=== PATIENT | female | born 1960 | race Caucasian/White ===

== ENCOUNTER 2020-02-09 14:07 | Emergency (ER) | payer MEDICAID ==
[2020-02-09 14:13] VITALS: BP 167/80
[2020-02-09] MEDS ORDERED: LIDOCAINE 1%-EPI 1:100000 20 ML MDV SUBQ STA (14:33)
[2020-02-09] MEDS ORDERED: TETANUS/DIPHTHERIA/PERTUSSIS 0.5 ML SYRINGE IM ONE (14:33)
--- NOTE | 2020-02-09 14:55 | ED Physician Documentation ---
History of Present Illness - Stated complaint Stated Complaint: RT ELBOW PX - Chief complaint Chief Complaint: Ext Problem - History obtained from History obtained from: Patient - History of Present Illness Timing: How many weeks ago (1) Pain level max: 5 Pain level now: 4 - Additonal information Additional information: Right elbow swelling after a fall 1 week ago. Worse with movement and better with rest. Review of Systems Constitutional: denies: Fever, Chills GI: denies: Vomiting, Diarrhea Skin: denies: Rash Musculoskeletal: denies: Neck pain, Back pain Neurologic: denies: Headache PD PAST MEDICAL HISTORY - Past Medical History Past Medical History: No - Past Surgical History Past Surgical History: No - Present Medications Home Medications: Ambulatory Orders Medication Instructions Recorded Confirmed Meloxicam [Mobic] 15 mg PO DAILY PRN #20 tablet 02/09/20 - Allergies Allergies/Adverse Reactions: Allergies Allergy/AdvReac Type Severity Reaction Status Date / Time No Known Drug Allergies Allergy Verified 02/09/20 14:10 - Living Situation Living Situation: reports: With family Living Arrangement: reports: At home - Social History Does the pt smoke?: No Smoking Status: Never smoker - Family History Family history: reports: Non contributory PD ED PE NORMAL - Vitals Vital signs reviewed: Yes - General General: Alert and oriented X 3, No acute distress - HEENT HEENT: Moist mucous membranes - Neck Neck: Supple, no meningeal sign - Respiratory Respiratory: No respiratory distress - Back Back: No spinal TTP - Derm Derm: Warm and dry - Extremities Extremities: Other (Olecranon bursa is inflamed, erythematous, tender to the touch. Approximately 2 x 2 cm in size.) - Neuro Neuro: Alert and oriented X 3 - Psych Psych: Normal mood, Normal affect Results - Vitals Vitals: Vital Signs - 24 hr 02/09/20 14:10 Temperature 37.1 C Heart Rate 84 Respiratory 14 Rate Blood Pressure 167/80 H O2 Saturation 98 Oxygen O2 Source Room air - Labs Labs: Microbiology 02/09/20 14:40 Body Fluid Culture - Final Other - Right Arm Laboratory Tests 02/09/20 02/09/20 14:40 14:40 Fluid Source SYNOVIAL Fluid Color YELLOW Fluid Clarity HAZY Fluid WBC 5160 Fluid RBC 5000 Fluid Crystals NONE SEEN Procedures - Abscess I&D (location) Right olecranon bursa Preparation: Confirmed with ultrasound, Lidocaine 1%, With epi Incision: Needle aspiration Other: Pt tolerated well, Dressing applied PD MEDICAL DECISION MAKING - ED course Complexity details: considered differential, d/w patient ED course: Patient with what appears to be a bursitis of the right olecranon bursa. Joint fluid is yellow and clear. Feels better after aspiration. Will place on anti-inflammatories as well. No signs of infection. Patient counseled regarding signs and symptoms for which I believe and urgent re-evaluation would be necessary. Patient with good understanding of and agreement to plan and is comfortable going home at this time This document was made in part using voice recognition software. While efforts are made to proofread this document, sound alike and grammatical errors may occur. Departure - Departure Disposition: 01 Home, Self Care Clinical Impression: Bursitis Qualifiers: Bursitis location: elbow Elbow bursitis location: olecranon bursitis Laterality: right Qualified Code(s): M70.21 - Olecranon bursitis, right elbow Condition: Good Instructions: ED Bursitis Follow-Up: Your,doctor in 1 week [Other] Prescriptions: Meloxicam [Mobic] 15 mg PO DAILY PRN #20 tablet PRN Reason: pain Comments: This should improve with anti-inflammatories. Follow-up with your doctor for further care. Discharge Date/Time: 02/09/20 15:03
[2020-02-09 15:30] LABS: BF CLARITY HAZY; BF COLOR YELLOW; BF SOURCE SYNOVIAL
[2020-02-09 15:31] LABS: CC,BF RBC 5000 /mm^3
[2020-02-09 16:44] LABS: MESOTHELIAL %, BF 0 %
== END 2020-02-09 15:03 | disposition home or self-care (01) ==
LOC: ED 14:07
DX: M70.21 Olecranon bursitis, right elbow (principal); Z23 Encounter for immunization
CPT/HCPCS: 10160; 87070; 87205; 89051; 89060; 90471